=== PATIENT | female | born 1945 | race Caucasian/White ===

== ENCOUNTER 2017-06-04 18:58 | Emergency (ER) | payer OTHER ==
[~2017-06-04] VITALS: Ht 152.4 cm; Wt 60.1 kg
[~2017-06-04 18:58] MED LIST: [UNRECOGNIZED DRUG - OTHER]; [UNRECOGNIZED DRUG - REMARK]
[2017-06-04 19:35] LABS: HEMATOCRIT 38.3 % (36.0-46.0); HEMOGLOBIN 13.8 G/DL (11.9-15.5); MCH 34.3 PG (29.0-34.0); MCV 95.3 FL (83-99); PLATELET COUNT 139 K/uL (156-360); RBC DIS.WIDTH-CV 13.2 % (11.8-14.6); RBC DIS.WIDTH-SD 44.8 % (39-53); RED BLOOD COUNT 4.02 M/uL (3.80-5.20); WHITE BLOOD COUNT 9.3 K/uL (4.1-10.2)
[2017-06-04 19:46] LABS: CHLORIDE 102 mEq/L (99-109); POTASSIUM 4.3 mEq/L (3.7-5.4); SODIUM 137 mEq/L (136-147)
[2017-06-04 19:48] LABS: GLUCOSE 147 mg/dL (70-99)
[2017-06-04 19:52] LABS: CREATININE 0.9 mg/dL (0.6-1.3); GFR ESTIMATE (CALCULATED) > 59 mL/min/
[2017-06-04 19:53] LABS: UREA NITROGEN (BUN) 16 mg/dL (9-23)
[2017-06-04 22:52] VITALS: BP 139/75
== END 2017-06-04 22:55 | disposition home or self-care (01) ==
LOC: EME 18:58
DX: I67.82 Cerebral ischemia (principal); B34.9 Viral infection, unspecified; R53.1 Weakness; F41.9 Anxiety disorder, unspecified
CPT/HCPCS: 70450; 71020; 80048; 85027; 93005; 99281; 99285; J7040

== ENCOUNTER 2017-08-03 13:51 | Observation (INO) | payer OTHER ==
[~2017-08-03] VITALS: Ht 152.4 cm; Wt 61.6 kg
[2017-08-03 15:24] LABS: APPEARANCE SL.HAZY ((CLEAR)); BILIRUBIN NEGATIVE; BLOOD MODERATE; COLOR YELLOW ((YELLOW)); GLUCOSE (STRIP) NEGATIVE; KETONES NEGATIVE; LEUKOCYTES TRACE; NITRITE NEGATIVE; PROTEIN (STRIP) 100; SPECIFIC GRAVITY 1.017 (1.000-1.030); UROBILINOGEN 0.2 MG/DL (0.2-1.0)
[2017-08-03 15:28] LABS: HEMATOCRIT 39.9 % (36.0-46.0); HEMOGLOBIN 14.2 G/DL (11.9-15.5); MCH 33.5 PG (29.0-34.0); MCHC 35.6 G/DL (30.0-36.0); MCV 94.1 FL (83-99); PLATELET COUNT 173 K/uL (156-360); RBC DIS.WIDTH-CV 12.2 % (11.8-14.6); RBC DIS.WIDTH-SD 42.3 % (39-53); RED BLOOD COUNT 4.24 M/uL (3.80-5.20); WHITE BLOOD COUNT 7.5 K/uL (4.1-10.2)
[2017-08-03 15:50] LABS: CHLORIDE 105 mEq/L (99-109); POTASSIUM 4.4 mEq/L (3.7-5.4); SODIUM 142 mEq/L (136-147)
[2017-08-03 15:52] LABS: GLUCOSE 104 mg/dL (70-99); TOTAL PROTEIN 6.7 g/dL (6.4-8.3)
[2017-08-03 15:54] LABS: TOTAL BILIRUBIN 0.7 mg/dL (0.0-1.0)
[2017-08-03 15:56] LABS: ALKALINE PHOSPHATASE 103 IU/L (3-129); CREATININE 0.8 mg/dL (0.6-1.3); GFR ESTIMATE (CALCULATED) > 59 mL/min/
[2017-08-03 15:57] LABS: AST (GOT) 46 IU/L (2-34); UREA NITROGEN (BUN) 16 mg/dL (9-23)
[2017-08-03 15:59] LABS: ALT (GPT) 50 IU/L (3-49); LIPASE 17 U/L (1.0-51.0)
[2017-08-03 16:03] LABS: BACTERIA NONE SEEN /HPF; EPITHELIAL CELLS RARE /HPF; MUCUS 3+ /LPF; RED BLOOD CELLS 20-30 /HPF (0-5); UCUL ADDED? NO; WHITE BLOOD CELLS 0-5 /HPF (0-5)
[2017-08-03 16:04] LABS: TROP-I INTERPRETATION NEGATIVE; TROPONIN-I < 0.01 ng/mL (0.0-0.30)
[2017-08-03 17:17] LABS: THYROTROPIN (TSH) 1.8 MIU/L (0.4-5.5)
[2017-08-03] MEDS ORDERED: DONEPEZIL HCL10 MG PO (23:06)
[2017-08-03] MEDS ORDERED: MEMANTINE HCL10 MG PO (23:07)
[2017-08-03] MEDS ORDERED: LEVO-T137 MCG PO (23:07)
[2017-08-03] MEDS ORDERED: DAILY VITE1 EAC1 PO (23:09)
[2017-08-03] MEDS ORDERED: FISH OIL 1,0001 EAC7 PO (23:11)
[2017-08-03 23:31] VITALS: BP 145/65
[2017-08-04 03:12] LABS: TROP-I INTERPRETATION NEGATIVE; TROPONIN-I < 0.01 ng/mL (0.0-0.30)
[2017-08-04 03:57] VITALS: BP 157/84
[2017-08-04 09:20] LABS: BASOPHIL (%) 0.4 % (0-1); EOSINOPHIL (%) 2.2 % (0-5); EOSINOPHIL COUNT 0.2 K/uL (0-0.3); HEMATOCRIT 39.7 % (36.0-46.0); HEMOGLOBIN 14.2 G/DL (11.9-15.5); IMMATURE GRANULOCYTE (%) 0.3 % (0.0-0.7); LYMPHOCYTE (%) 31.7 % (15-42); LYMPHOCYTE COUNT 2.3 K/uL (1.0-2.8); MCH 33.4 PG (29.0-34.0); MCHC 35.8 G/DL (30.0-36.0); MCV 93.4 FL (83-99); MONOCYTE (%) 6.6 % (3-12); MONOCYTE COUNT 0.5 K/uL (0-0.8); NEUTROPHIL (%) 58.8 % (45-76); NEUTROPHIL COUNT 4.2 K/uL (1.8-6.4); PLATELET COUNT 173 K/uL (156-360); RBC DIS.WIDTH-CV 12.4 % (11.8-14.6); RED BLOOD COUNT 4.25 M/uL (3.80-5.20); WHITE BLOOD COUNT 7.1 K/uL (4.1-10.2)
[2017-08-04 09:38] LABS: TROP-I INTERPRETATION NEGATIVE; TROPONIN-I < 0.01 ng/mL (0.0-0.30)
[2017-08-04 09:41] LABS: ALBUMIN 3.8 G/DL (3.2-4.8); ALKALINE PHOSPHATASE 82 IU/L (3-129); ALT (GPT) 38 IU/L (3-49); AST (GOT) 35 IU/L (2-34); CHLORIDE 107 MEQ/L (99-109); CREATININE 0.7 MG/DL (0.6-1.3); DIRECT BILIRUBIN 0.2 mg/dL (0.0-0.3); GFR ESTIMATE (CALCULATED) > 59 mL/min/; GLUCOSE 106 mg/dL (70-99); POTASSIUM 4.1 MEQ/L (3.7-5.4); SODIUM 141 MEQ/L (136-147); TOTAL BILIRUBIN 0.8 MG/DL (0.0-1.0); TOTAL PROTEIN 6.6 G/DL (6.4-8.3); UREA NITROGEN (BUN) 15 mg/dL (9-23)
[2017-08-04 10:24] LABS: APPEARANCE CLEAR ((CLEAR)); BILIRUBIN NEGATIVE; BLOOD MODERATE; COLOR YELLOW ((YELLOW)); GLUCOSE (STRIP) NEGATIVE; KETONES NEGATIVE; LEUKOCYTES TRACE; NITRITE NEGATIVE; PROTEIN (STRIP) NEGATIVE; SPECIFIC GRAVITY 1.012 (1.000-1.030); UROBILINOGEN 0.2 MG/DL (0.2-1.0)
[2017-08-04 10:37] LABS: BACTERIA 1+ /HPF; EPITHELIAL CELLS RARE /HPF; MUCUS TRACE /LPF; RED BLOOD CELLS 30-40 /HPF (0-5)
[2017-08-04 16:10] VITALS: BP 173/77
== END 2017-08-04 17:57 | disposition home or self-care (01) ==
LOC: EME 13:51 → EDOF 21:55 → 5WEST 21:55 → EDOF 21:55 → ENRESERV 22:13 → 5WEST 23:12 → ENPENDDIS 08-04 → 5WEST 08-04 17:57
PROVIDERS: Emergency Medicine; Hospitalist; Nurse Practitioner Adult Health
DX: R55 Syncope and collapse (principal); E86.0 Dehydration; R31.29 Other microscopic hematuria; R60.0 Localized edema; B34.9 Viral infection, unspecified; R05 Cough; F03.90 Unspecified dementia, unspecified severity, without behavioral disturbance, psychotic disturbance, mood disturbance, and anxiety; E03.9 Hypothyroidism, unspecified; R53.1 Weakness; F41.9 Anxiety disorder, unspecified; E11.9 Type 2 diabetes mellitus without complications; Z90.710 Acquired absence of both cervix and uterus
CPT/HCPCS: 70450; 70551; 71046; 74176; 80048; 80053; 80076; 81003; 82607; 83690; 84443; 84484; 85025; 85027; 93005; 93306; 93880; 93970; 95819; 99281; 99285; G0378; J1650; J7030

== ENCOUNTER 2017-12-08 15:01 | Observation (INO) | payer OTHER ==
[~2017-12-08] VITALS: Ht 154.9 cm; Wt 62.9 kg
[~2017-12-08 15:01] MED LIST changes: +DAILY VITE1 EAC1 PO; +DONEPEZIL HCL10 MG PO; +FISH OIL 1,0001 EAC7 PO; +LEVO-T137 MCG PO; +MEMANTINE HCL10 MG PO
[2017-12-08 16:20] LABS: HEMATOCRIT 37.4 % (36.0-46.0); HEMOGLOBIN 13.4 G/DL (11.9-15.5); MCH 30.7 PG (29.0-34.0); MCHC 35.8 G/DL (30.0-36.0); MCV 85.8 FL (83-99); PLATELET COUNT 155 K/uL (156-360); RBC DIS.WIDTH-CV 12.6 % (11.8-14.6); RBC DIS.WIDTH-SD 39.2 % (39-53); RED BLOOD COUNT 4.36 M/uL (3.80-5.20); WHITE BLOOD COUNT 8.5 K/uL (4.1-10.2)
[2017-12-08 16:29] LABS: CHLORIDE 106 mEq/L (99-109); POTASSIUM 4.1 mEq/L (3.7-5.4); SODIUM 138 mEq/L (136-147)
[2017-12-08 16:35] LABS: CREATININE 0.8 mg/dL (0.6-1.3); GFR ESTIMATE (CALCULATED) > 59 mL/min/
[2017-12-08 16:36] LABS: UREA NITROGEN (BUN) 18 mg/dL (9-23)
[2017-12-08 16:43] LABS: TROP-I INTERPRETATION NEGATIVE; TROPONIN-I < 0.01 ng/mL (0.0-0.30)
[2017-12-08 16:44] LABS: PTT 29.3 SEC (25-37)
[2017-12-08 16:56] LABS: GLUCOSE 112 mg/dL (70-99)
[2017-12-08] MEDS ORDERED: ADVIL,NUPRIN,M200 MG PO (18:18)
[2017-12-08] MEDS ORDERED: LO-DOSE ASPIRIN81 M1 PO (18:18)
[2017-12-08] MEDS ORDERED: VITAMIN B-150 MG PO (18:19)
[2017-12-08 20:40] VITALS: BP 137/58
[2017-12-08 23:45] VITALS: BP 148/66
[2017-12-09] VITALS (7 sets, daily range): BP systolic 115–169; BP diastolic 60–78
[2017-12-09 06:50] LABS: HEMATOCRIT 36.1 % (36.0-46.0); HEMOGLOBIN 12.4 G/DL (11.9-15.5); MCH 29.9 PG (29.0-34.0); MCHC 34.3 G/DL (30.0-36.0); PLATELET COUNT 162 K/uL (156-360); RBC DIS.WIDTH-CV 12.9 % (11.8-14.6); RBC DIS.WIDTH-SD 40.1 % (39-53); RED BLOOD COUNT 4.15 M/uL (3.80-5.20); WHITE BLOOD COUNT 6.8 K/uL (4.1-10.2)
[2017-12-09 07:10] LABS: CHLORIDE 105 MEQ/L (99-109); CREATININE 0.8 MG/DL (0.6-1.3); GFR ESTIMATE (CALCULATED) > 59 mL/min/; GLUCOSE 109 mg/dL (70-99); POTASSIUM 4.1 MEQ/L (3.7-5.4); SODIUM 142 MEQ/L (136-147); UREA NITROGEN (BUN) 18 mg/dL (9-23)
[2017-12-09 10:52] LABS: THYROTROPIN (TSH) 1.1 MIU/L (0.4-5.5)
[2017-12-10 04:14] VITALS: BP 172/77
[2017-12-10 05:30] LABS: BASOPHIL (%) 0.1 % (0-1); EOSINOPHIL (%) 0.8 % (0-5); EOSINOPHIL COUNT 0.1 K/uL (0-0.3); HEMATOCRIT 36.4 % (36.0-46.0); HEMOGLOBIN 12.6 G/DL (11.9-15.5); IMMATURE GRANULOCYTE (%) 0.3 % (0.0-0.7); LYMPHOCYTE (%) 21.4 % (15-42); LYMPHOCYTE COUNT 1.6 K/uL (1.0-2.8); MCH 30.2 PG (29.0-34.0); MCHC 34.6 G/DL (30.0-36.0); MCV 87.3 FL (83-99); MONOCYTE (%) 6.1 % (3-12); MONOCYTE COUNT 0.5 K/uL (0-0.8); NEUTROPHIL (%) 71.3 % (45-76); NEUTROPHIL COUNT 5.2 K/uL (1.8-6.4); PLATELET COUNT 148 K/uL (156-360); RBC DIS.WIDTH-SD 40.7 % (39-53); RED BLOOD COUNT 4.17 M/uL (3.80-5.20); WHITE BLOOD COUNT 7.4 K/uL (4.1-10.2)
[2017-12-10 05:57] LABS: ALBUMIN 3.6 G/DL (3.2-4.8); ALKALINE PHOSPHATASE 76 IU/L (3-129); ALT (GPT) 27 IU/L (3-49); AST (GOT) 26 IU/L (2-34); CHLORIDE 103 MEQ/L (99-109); CREATININE 0.8 MG/DL (0.6-1.3); GFR ESTIMATE (CALCULATED) > 59 mL/min/; GLUCOSE 114 mg/dL (70-99); SODIUM 142 MEQ/L (136-147); TOTAL BILIRUBIN 0.5 MG/DL (0.0-1.0); UREA NITROGEN (BUN) 15 mg/dL (9-23)
[2017-12-10] MEDS ORDERED: NORVASC5 MG PO (10:47)
== END 2017-12-10 12:45 | disposition home or self-care (01) ==
LOC: EME 15:01 → 3EAST 16:39 → EDOF 16:39 → 3EAST 16:39 → ENRESERV 16:46 → 3EAST 20:17 → ENRESERV 12-09 14:40 → 4EAST 12-09 16:23
PROVIDERS: Emergency Medicine; Hospitalist; Internal Medicine
DX: S06.5X9A Traumatic subdural hemorrhage with loss of consciousness of unspecified duration, initial encounter (principal); R55 Syncope and collapse; I49.5 Sick sinus syndrome; I45.5 Other specified heart block; G93.89 Other specified disorders of brain; R09.02 Hypoxemia; I10 Essential (primary) hypertension; F03.90 Unspecified dementia, unspecified severity, without behavioral disturbance, psychotic disturbance, mood disturbance, and anxiety; E03.9 Hypothyroidism, unspecified; F41.9 Anxiety disorder, unspecified; E11.9 Type 2 diabetes mellitus without complications; W19.XXXA Unspecified fall, initial encounter
CPT/HCPCS: 36415; 70450; 71045; 80048; 80048 91; 80053; 84443; 84484; 85025; 85027; 85610; 85730; 93005; 99281; 99285; C1785; C1894; C1898; G0378; J0690; J2250; J2405; J3010; S0020